=== PATIENT | female | born 1935 | race Caucasian/White ===

== ENCOUNTER 2022-01-30 17:47 | Emergency (ER) | payer OTHER ==
[~2022-01-30] VITALS: Ht 149.9 cm; Wt 38.6 kg
--- NOTE | 2022-01-30 18:12 | NUR ---
IV LINE IS ESTABLISHED, BLOOD SPECIMEN COLLECTED AND SENT TO THE LAB. THE LINE IS SALINE LOCKED.
[2022-01-30] MEDS: IV NS 0.9% 1,000 ML BAG IV ONE (18:26)
[2022-01-30 18:30] LABS: BASOPHILS % (AUTO) 0.4 % (0.0-2.0); HEMATOCRIT 40 % (33-45); HEMOGLOBIN 13.1 g/dL (11.5-14.8); LYMPHOCYTES # (AUTO) 1.4 K/uL (0.8-4.8); LYMPHOCYTES % (AUTO) 20.3 % (20.0-44.0); MEAN CORPUSCULAR HGB CONC 33 g/dl (31.0-36.0); MEAN CORPUSCULAR VOLUME 92 fL (82-100); MONOCYTES # (AUTO) 0.4 K/uL (0.1-1.30); NEUTROPHILS # (AUTO) 4.8 K/uL (1.8-8.9); NEUTROPHILS % (AUTO) 71.3 % (43.0-81.0); PLATELET COUNT (AUTO) 163 K/uL (150-450); RED BLOOD CELL COUNT(AUTO) 4.37 MIL/uL (4.0-5.2); WHITE BLOOD COUNT (AUTO) 6.7 K/uL (4.3-11.0)
[2022-01-30 18:45] LABS: CALCIUM, SERUM 8.5 mg/dL (8.5-10.1); CARBON DIOXIDE 28 mmol/L (21-32); CHLORIDE 105 mmol/L (98-107); CREATININE 0.8 mg/dL (0.6-1.3); GLUCOSE 136 mg/dL (74-106); POTASSIUM 4.4 mmol/L (3.5-5.1); SODIUM SERUM 139 mmol/L (136-145); UREA NITROGEN, BLOOD 12 mg/dL (7-18)
[2022-01-30 18:52] LABS: ALANINE AMINOTRANSFERASE 21 U/L (12-78); ALKALINE PHOSPHATASE 98 U/L (46-116); ASPARTATE AMINOTRANSFERASE 16 U/L (15-37); BILIRUBIN,DIRECT 0.1 mg/dL (0.0-0.2); BILIRUBIN,TOTAL 0.5 mg/dL (0.2-1.0); TOTAL PROTEIN, SERUM 6.2 g/dL (6.4-8.2)
--- NOTE | 2022-01-30 19:06 | NUR ---
URINE COLLECTED AND SENT TO LAB
--- NOTE | 2022-01-30 20:02 | NUR ---
CHIEF ENGINEER PRODUCTION AT PT'S BEDSIDE
--- NOTE | 2022-01-30 21:12 | NUR ---
CALLED [facility], SPOKE TO MAEGAN, AWAITING CALL BACK FROM FOR AUTH OF BLS TRANSPORT
--- NOTE | 2022-01-30 21:21 | NUR ---
CAREGIVER [phone]
--- NOTE | 2022-01-30 21:25 | NUR ---
DR. MIN ON PHONE CALL WITH [facility]
--- NOTE | 2022-01-30 21:48 | NUR ---
[facility] ETA [id number]
--- NOTE | 2022-01-30 21:54 | NUR ---
REPORT GIVEN TO FERMIN CAREGIVER OF [facility] ([phone] - [phone]
--- NOTE | 2022-01-30 22:45 | NUR ---
REPORT GIVEN TO [facility] FOR PT TO BE D/C TO [facility]
[2022-01-30 22:49] VITALS: BP 105/71
== END 2022-01-30 22:50 ==
LOC: ER 17:48
DX: R55 Syncope and collapse (principal); I10 Essential (primary) hypertension; Z86.69 Personal history of other diseases of the nervous system and sense organs
CPT/HCPCS: 36415; 70450; 71045; 80048; 80076; 83880; 84484 ×2; 85025; 85730; 93005; 96360; 99285; J7030